=== PATIENT | male | born 1960 | race African-American/Black ===

== ENCOUNTER 2025-03-30 20:12 | Emergency (ER) | payer MEDICAID, OTHER ==
[~2025-03-30] VITALS: Ht 167.6 cm; Wt 77.0 kg
[2025-03-30 20:24] VITALS: O2SAT 97
[2025-03-30] MEDS ORDERED: GABA-290 MT (20:34)
[2025-03-30 21:35] LABS: BASOPHILS % 0.5 % (0.0-2.0); EOSINOPHILS % 1.0 % (0.0-5.0); HEMATOCRIT. 41.5 % (42.0-52.0); HEMOGLOBIN. 13.8 g/dL (14.0-18.0); LYMPHOCYTES % 10.9 % (20.0-50.0); MEAN PLATELET VOLUME 7.3 fl (7.4-10.4); MONOCYTES % 7.9 % (2.0-8.0); NEUTROPHILS % 79.7 % (40.0-76.0); PLATELET 229 x1000/uL (130-400); RED BLOOD CELL COUNT 4.61 mill/uL (4.7-6.1); RED CELL DISTRIBUTION WIDTH 13.7 % (11.6-14.6)
[2025-03-30 21:47] LABS: CREATININE 1.0 mg/dL (0.6-1.3)
[2025-03-30 21:48] LABS: TROPONIN I HIGH SENSITIVITY 9 ng/L (3.0-53); UREA NITROGEN BLOOD 10 mg/dL (9-23)
[2025-03-30 21:49] LABS: ASPARTATE AMINOTRANSFERASE 17 IU/L (<34); BILIRUBIN DIRECT 0.2 mg/dL (<=3.0)
[2025-03-30 21:50] LABS: BILIRUBIN TOTAL 0.7 mg/dL (0.1-1.0); PROTEIN TOTAL 6.5 g/dL (6.0-8.3)
[2025-03-30] MEDS ORDERED: P50 MT (22:00)
[2025-03-30] MEDS: KETOROLAC 15MG/ML VIAL IM ONE (22:03)
[2025-03-30] MEDS: OXYCODONE HCL/ACETAMINOPHEN 5/325MG TABLET PO ONE (22:06)
[2025-03-30 22:10] VITALS: BP 103/48; PULSE 86; RESP 17; TEMP 36.9; O2SAT 98
[2025-03-30] MEDS: PREDNISONE 20MG TABLET PO ONE (22:11)
== END 2025-03-30 22:25 | disposition home or self-care (01) ==
LOC: ER 20:12
DX: M62.831 Muscle spasm of calf (principal); Z88.5 Allergy status to narcotic agent; Z79.899 Other long term (current) drug therapy
CPT/HCPCS: 99283; 80076; 80048; 81025; 82550; 83880; 83735; 85025; 84484; 36415; J1885; J7512